=== PATIENT | male | born 1995 | race Caucasian/White ===

== ENCOUNTER 2018-11-28 16:40 | Emergency (ER) | payer OTHER ==
[2018-11-28 16:52] VITALS: BP 126/85
--- NOTE | 2018-11-28 16:58 | UC ---
UC General HPI - HPI Summary HPI Summary: rash for about 3 weeks. it began in between fingers on L hand and now involves both hands, forearms, waist and inner thighs. + itching. worse itching at night. had contact with a new person about 2 weeks prior to onset. - History of Current Complaint Chief Complaint: UCSkin Stated Complaint: RASH LEFT HAND Time Seen by Provider: 11/28/18 16:48 Hx Obtained From: Patient Onset/Duration: Gradual Onset Timing: Constant Pain Intensity: 0 Associated Signs & Symptoms: Negative: Fever - Allergy/Home Medications Allergies/Adverse Reactions: Allergies Allergy/AdvReac Type Severity Reaction Status Date / Time No Known Allergies Allergy Verified 11/28/18 16:52 PMH/Surg Hx/FS Hx/Imm Hx Previously Healthy: Yes - Surgical History Surgical History: None Surgery Procedure, Year, and Place: DENIES - Family History Known Family History: Positive: Non-Contributory - Social History Occupation: Student Alcohol Use: Weekly Substance Use Type: None Smoking Status (MU): Never Smoked Tobacco - Immunization History Vaccination Up to Date: Yes Review of Systems All Other Systems Reviewed And Are Negative: Yes Constitutional: Positive: Negative Skin: Positive: Rash Eyes: Positive: Negative ENT: Positive: Negative Respiratory: Positive: Negative Cardiovascular: Positive: Negative Gastrointestinal: Positive: Negative Genitourinary: Positive: Negative Motor: Positive: Negative Neurovascular: Positive: Negative Musculoskeletal: Positive: Negative Neurological: Positive: Negative Psychological: Positive: Negative Physical Exam Triage Information Reviewed: Yes Appearance: Well-Appearing Vital Signs: Initial Vital Signs Temp 98 F 11/28/18 16:49 Pulse 68 11/28/18 16:49 Resp 12 11/28/18 16:49 BP 126/85 11/28/18 16:49 Pulse Ox 99 11/28/18 16:49 Vital Signs Reviewed: Yes Eyes: Positive: Conjunctiva Clear ENT: Positive: Normal ENT inspection Neck: Positive: Supple Respiratory: Positive: Normal breath sounds Cardiovascular: Positive: RRR Abdomen Description: Positive: Nontender Musculoskeletal: Positive: ROM Intact Neurological: Positive: Alert Psychological: Positive: Age Appropriate Behavior Skin Exam: Normal Skin: Positive: Rashes - pink areas in webs of fingers, dorsal hands and forearms L>R plus waist line and inner thighs. some aresa appear linear. some of the surfaces are dry. none appear blistering or petechial. Course/Dx - Differential Dx - Multi-Symptom Differential Diagnoses: Other - infestation, eczema, folliculitis, contact dermatitis. - Diagnoses Provider Diagnosis: Scabies Discharge - Sign-Out/Discharge Documenting (check all that apply): Patient Departure All imaging exams completed and their final reports reviewed: No Studies - Discharge Plan Condition: Stable Disposition: HOME Prescriptions: Permethrin [Elimite] 60 gm TP ONCE #1 cream..g. Patient Education Materials: Scabies (ED) Referrals: [facility] [Outside] Additional Instructions: FOLLOW UP IN 2 WEEKS IF NOT BETTER OR IMMEDIATELY FOR ANY WORSENING - Billing Disposition and Condition Condition: STABLE Disposition: Home
== END 2018-11-28 17:10 | disposition home or self-care (01) ==
LOC: UCCORT 16:40
DX: B86 Scabies (principal)
CPT/HCPCS: 99212; G0463

== ENCOUNTER 2019-03-31 18:58 | Emergency (ER) | payer OTHER ==
[2019-03-31 19:11] VITALS: BP 98/74
--- NOTE | 2019-03-31 19:30 | UC ---
Lower Extremity/Ankle HPI - HPI Summary HPI Summary: L ankle pain after playing basketball and jumping up, landing 'wrong' on L ankle. denies pain but is here for precaution. denies swelling, bruising, numbness. - History of Current Complaint Chief Complaint: UCLowerExtremity Stated Complaint: LEFT ANKLE INJURY Time Seen by Provider: 03/31/19 19:08 Hx Obtained From: Patient Onset/Duration: Sudden Onset Pain Intensity: 7 Pain Scale Used: 0-10 Numeric Aggravating Factor(s): Nothing Alleviating Factor(s): Nothing - Allergies/Home Medications Allergies/Adverse Reactions: Allergies Allergy/AdvReac Type Severity Reaction Status Date / Time No Known Allergies Allergy Verified 11/28/18 16:52 Home Medications: Home Medications NK [No Home Medications Reported] 03/31/19 [History Confirmed 03/31/19] PMH/Surg Hx/FS Hx/Imm Hx - Additional Past Medical History Additional PMH: no chronic Previously Healthy: Yes - Surgical History Surgical History: None Surgery Procedure, Year, and Place: DENIES - Family History Known Family History: Positive: Non-Contributory - Social History Alcohol Use: Occasionally Substance Use Type: None Smoking Status (MU): Never Smoked Tobacco Type: eCigarettes - Immunization History Vaccination Up to Date: Yes Review of Systems All Other Systems Reviewed And Are Negative: Yes Constitutional: Negative: Fever Skin: Negative: Bruising Musculoskeletal: Positive: Arthralgia - l ankle. Negative: Edema, Myalgia Neurological: Negative: Weakness, Paresthesia Physical Exam Triage Information Reviewed: Yes Appearance: Well-Appearing Vital Signs: Initial Vital Signs Temp 98.7 F 03/31/19 19:09 Pulse 91 03/31/19 19:09 Resp 18 03/31/19 19:09 BP 98/74 03/31/19 19:09 Pulse Ox 98 03/31/19 19:09 Vital Signs Reviewed: Yes Musculoskeletal: Positive: Strength Intact - l ankle., ROM Intact - l ankle, No Edema - l ankle Neurological: Positive: Alert Skin: Negative: Other - no bruising noted in l ankle. Lower Extremity Course/Dx - Course Course Of Treatment: L ankle pain after inversion injury playing basketball. on exam nontender, neg. [place]'s rule, and neurovascularly intact. low chance of having a fracture. preliminary xray appears to be unremarkable. vitals good - Differential Dx/Diagnosis Differential Diagnosis/HQI/PQRI: Fracture (Closed), Sprain, Strain, Tendonitis Provider Diagnosis: Left ankle sprain Discharge - Sign-Out/Discharge Documenting (check all that apply): Patient Departure All imaging exams completed and their final reports reviewed: No - Discharge Plan Condition: Good Disposition: HOME Patient Education Materials: Ankle Sprain (DC) Referrals: No Primary Care Phys,NOPCP [Primary Care Provider] - Additional Instructions: please follow up with pcp if not improving. - Billing Disposition and Condition Condition: GOOD Disposition: Home
--- NOTE | 2019-04-01 11:41 | UC ---
- Progress Note Progress Note: Final x-ray reading reviewed. SOFT TISSUE SWELLING, NO FRACTURE IS SEEN. Consistent with provider reading. No change in POC. Course/Dx - Diagnoses Provider Diagnoses: Left ankle sprain Discharge - Sign-Out/Discharge Documenting (check all that apply): Post-Discharge Follow Up All imaging exams completed and their final reports reviewed: Yes - Discharge Plan Condition: Good Disposition: HOME Patient Education Materials: Ankle Sprain (DC) Referrals: No Primary Care Phys,NOPCP [Primary Care Provider] - Additional Instructions: please follow up with pcp if not improving. - Billing Disposition and Condition Condition: GOOD Disposition: Home
== END 2019-03-31 19:45 | disposition home or self-care (01) ==
LOC: UCCORT 18:58
DX: S93.402A Sprain of unspecified ligament of left ankle, initial encounter (principal); X50.1XXA Overexertion from prolonged static or awkward postures, initial encounter; Y93.67 Activity, basketball; Y92.310 Basketball court as the place of occurrence of the external cause
CPT/HCPCS: 99212; G0463

== ENCOUNTER 2019-12-10 08:48 | Emergency (ER) | payer OTHER ==
[2019-12-10 09:00] VITALS: BP 139/68
--- NOTE | 2019-12-10 09:10 | UC ---
Hand/Wrist HPI - HPI Summary HPI Summary: right hand pain x 1 day pain is 3 out of 10 , worse with movement / touch better with splint, ice, injured right hand in a hockey game last night , got mad and punched a hard surface with his right fist + pain / swelling / bruising of right hand / 5th metacarpal - History Of Current Complaint Chief Complaint: UCUpperExtremity Stated Complaint: RT HAND INJURY-SPORTS RELATED Time Seen by Provider: 12/10/19 08:50 Hx Obtained From: Patient Onset/Duration: Sudden Onset, Lasting Days - 1, Still Present Severity Initially: Moderate Severity Currently: Moderate Pain Intensity: 3 Character Of Pain: Aching, Throbbing Aggravating Factor(s): Movement Alleviating Factor(s): Rest, Ice Associated Signs And Symptoms: Positive: Swelling, Bruising, Weakness. Negative : Redness, Fever, Numbness/Tingling - Allergies/Home Medications Allergies/Adverse Reactions: Allergies Allergy/AdvReac Type Severity Reaction Status Date / Time No Known Allergies Allergy Verified 12/10/19 09:01 PMH/Surg Hx/FS Hx/Imm Hx Previously Healthy: Yes - Surgical History Surgical History: None Surgery Procedure, Year, and Place: DENIES - Family History Known Family History: Positive: Non-Contributory - Social History Alcohol Use: Occasionally Substance Use Type: None Smoking Status (MU): Never Smoked Tobacco Type: eCigarettes - Immunization History Vaccination Up to Date: Yes Review of Systems All Other Systems Reviewed And Are Negative: Yes Constitutional: Positive: Negative Is Patient Immunocompromised?: No Physical Exam Triage Information Reviewed: Yes Appearance: Well-Appearing, No Pain Distress, Well-Nourished Vital Signs: Initial Vital Signs Temp 97.8 F 12/10/19 08:55 Pulse 56 12/10/19 08:55 Resp 18 12/10/19 08:55 BP 139/68 12/10/19 08:55 Pulse Ox 98 12/10/19 08:55 Vital Signs Reviewed: Yes Eye Exam: Normal Eyes: Positive: Conjunctiva Clear ENT: Positive: Normal ENT inspection, Hearing grossly normal, Pharynx normal Neck: Positive: Supple, Nontender, No Lymphadenopathy Respiratory: Positive: Chest non-tender, Lungs clear, Normal breath sounds Cardiovascular: Positive: RRR, No Murmur, Pulses Normal Musculoskeletal: Positive: Other: - right hand : + swelling/ bruising , tenderness 5th metacarpal bone , deformaty of the right MP joinnt / knuck Diagnostics - Radiology No standard instances Radiology Interpretation Completed By: Radiologist Summary of Radiographic Findings: IMPRESSION: ANGULATED FRACTURE OF THE DISTAL FIFTH METACARPAL right hand Hand/Wrist Course/Dx - Differential Dx/Diagnosis Provider Diagnosis: Fracture of fifth metacarpal bone of right hand Discharge ED - Sign-Out/Discharge Documenting (check all that apply): Patient Departure All imaging exams completed and their final reports reviewed: Yes - Discharge Plan Condition: Stable Disposition: HOME Patient Education Materials: Boxer Fracture (ED) Referrals: Christiano Virk MD [Medical Doctor] - As Soon As Possible No Primary Care Phys,NOPCP [Primary Care Provider] - - Billing Disposition and Condition Condition: STABLE Disposition: Home
== END 2019-12-10 09:33 | disposition home or self-care (01) ==
LOC: UCCORT 08:48
DX: S62.201A Unspecified fracture of first metacarpal bone, right hand, initial encounter for closed fracture (principal); W22.8XXA Striking against or struck by other objects, initial encounter; Y93.22 Activity, ice hockey; Y92.9 Unspecified place or not applicable
CPT/HCPCS: 99211; G0463